=== PATIENT | female | born 1960 ===

== ENCOUNTER 2019-03-09 16:25 | Observation (INO) | payer BC ==
[~2019-03-09] VITALS: Ht 160 cm; Wt 118.0 kg
[2019-03-09] MEDS ORDERED: GABAPENTIN600 MG PO (16:47)
[2019-03-09] MEDS ORDERED: LOSARTAN POTASS50 MG PO (16:48)
[2019-03-09] MEDS ORDERED: METFORMIN HCL500 M2 PO (16:48)
[2019-03-09] MEDS ORDERED: Hydrochlorothia25 MG PO (16:48)
[2019-03-09 17:04] LABS: BASOPHILS ABSOLUTE AUTO 0.02 K/mm3 (0.00-0.23); BASOPHILS PERCENT AUTO 0 % (0-2); EOSINOPHILS ABSOLUTE AUTO 0.04 K/mm3 (0.00-0.68); EOSINOPHILS PERCENT AUTO 0 % (0-6); Hematocrit 40.5 % (33.0-51.0); IMMATURE GRAN ABSOLUTE AUTO 0.04 K/mm3 (0.00-0.10); IMMATURE GRAN PERCENT AUTO 0 % (0-1); LYMPHOCYTES ABSOLUTE AUTO 1.39 K/mm3 (0.84-5.20); LYMPHOCYTES PERCENT AUTO 14 % (21-46); MONOCYTES PERCENT AUTO 4 % (4-13); Mean Corpuscular HGB 28.4 pg (26.0-34.0); Mean Corpuscular HGB Conc 32.1 g/dL (31.5-36.5); Mean Corpuscular Volume 89 fL (80-100); Mean Platelet Volume 9.5 fL (9.1-12.4); NEUTROPHILS ABSOLUTE AUTO 7.85 K/mm3 (1.96-9.15); NEUTROPHILS PERCENT AUTO 81 % (41-73); Platelet Count 334 K/mm3 (150-400); RDW Coefficient Variation 12.7 % (11.7-14.2); RDW Standard Deviation 41.5 fL (35.1-46.3); Red Blood Cell Count 4.57 M/mm3 (3.80-5.20); White Blood Cell Count 9.74 K/mm3 (4.00-11.30)
[2019-03-09 17:17] LABS: Albumin, Blood 3.9 g/dL (3.4-5.0); Albumin/Globulin Ratio 1.1 (0.8-1.8); Bilirubin, Total 0.3 mg/dL (0.1-1.0); Bun/Creatinine Ratio 15.8 (12.0-20.0); Calcium, Blood 10.7 mg/dL (8.5-10.1); Creatinine, Blood 1.01 mg/dL (0.40-1.00); Globulin, Blood 3.7 g/dL (2.2-4.0); Potassium, Blood 3.6 mmol/L (3.5-5.5); Total Protein, Blood 7.6 g/dL (6.4-8.2)
[2019-03-09 18:02] LABS: Source, Urine Clean Catch
[2019-03-09 18:13] LABS: Appearance, Urine Hazy (Clear); Bilirubin, Urine Neg (Neg); Blood, Urine 4+ (Neg); Color, Urine Yellow (P-Yellow); Glucose Qualitative, Urine Neg (Neg); Ketones, Urine 1+ (Neg); Leukocyte Esterase, Urine 3+ (Neg); Nitrite, Urine Neg (Neg); Protein, Urine 2+ (Neg); Urobilinogen, Urine NORM (Normal)
[2019-03-09 18:25] LABS: Bacteria Many /hpf; Squamous Epithelial Cells Mod /hpf (Few)
[2019-03-09 18:27] LABS: Hyaline Casts 0-2 /lpf (0-2)
[2019-03-09 19:13] LABS: Source, Urine Catheter
[2019-03-09 19:17] LABS: Appearance, Urine Clear (Clear); Bilirubin, Urine Neg (Neg); Blood, Urine 3+ (Neg); Color, Urine Yellow (P-Yellow); Glucose Qualitative, Urine Neg (Neg); Ketones, Urine Neg (Neg); Leukocyte Esterase, Urine 2+ (Neg); Nitrite, Urine Neg (Neg); Protein, Urine Neg (Neg); Urobilinogen, Urine NORM (Normal)
[2019-03-09 19:25] LABS: Bacteria Mod /hpf
[2019-03-09 19:26] LABS: Squamous Epithelial Cells Few /hpf (Few)
[2019-03-09 20:53] LABS: International Normalized Ratio 0.97; Prothrombin Time Results 10.3 Sec (9.7-11.5)
[2019-03-09 23:07] LABS: Hematocrit 37.6 % (33.0-51.0); Hemoglobin 12.2 g/dL (11.5-16.0); Mean Corpuscular HGB 28.7 pg (26.0-34.0); Mean Corpuscular HGB Conc 32.4 g/dL (31.5-36.5); Mean Corpuscular Volume 89 fL (80-100); Mean Platelet Volume 9.4 fL (9.1-12.4); Platelet Count 315 K/mm3 (150-400); RDW Coefficient Variation 12.9 % (11.7-14.2); RDW Standard Deviation 41.6 fL (35.1-46.3); Red Blood Cell Count 4.25 M/mm3 (3.80-5.20); White Blood Cell Count 13.91 K/mm3 (4.00-11.30)
--- NOTE | 2019-03-09 23:31 | NUR ---
2215 REPORT RECEIVED FROM SHELBIE RUTH IN ER; PT ARRIVED TO FLOOR VIA CART WITH IV LFA SQ, ENTIRE CATHETER REMOVED INTACT AND PRESSURE DRESSING APPLIED. PT WAS NOTED TO HAVE AN IRREGULAR HEART BEAT; DR MOELLER WAS CALLED AND TELEMETRY WAS APPLIED WITH [facility]--SENIOR JAVA DATA ARCHITECT ADVISING OF HEART RATE 150. PT ALSO HAD A 400ML EMESIS (DARK BLACK FLUID). 2315 DR MOELLER CALLED AND ADVISED OF SVT RATE 210; STAT EKG AND MD TO COME BEDSIDE FOR EVALUATION. 2325 DR MOELLER AT SIDE WITH ORDERS TO MOVE PCU; THIS NURSE CALLED REPORT TO PCU=11, NIK RN; PT MOVED VIA BED TO PCU WITH ALL PERSONAL BELONGINGS; LABORER HEADING WILL NOTIFY FAMILY OF MOVE FROM MEDICAL FLOOR.
--- NOTE | 2019-03-10 01:00 | NUR ---
TRANSFER NOTE REPORT RECIEVED FROM SHELBIE BROWN. PATIENT TRANSFERED DOWN AT APPROX 2325. PATIENT DID NOT APPEAR TO BE IN ANY DISTRESS UPON ARRIVAL TO THE UNIT. PATIENT DENIED HAVING ANY CHEST PAIN OR DISCOMFORT. PATIENT STATED THAT SHE WAS WANTING TO, "GET SOME SLEEP." PATIENT SETTLED IN AND ORIENTED TO THE ROOM, UNIT, AND CALL LIGHT. DR MOELLER PRESENT IN ROOM WITH PATIENT UPON TRANSFER. EKG OBTAINED. IV CARDIZEM PUSH GIVEN PER ORDERS AND CARDIZEM GTT STARTED AT 10 ML/HR PER DR MILLIGAN ORDERS. ICE PACK GIVEN TO PATIENT FOR A MILD HEADACHE. PATIENT CURENTLY RESTING IN BED COMFORTABLY. IV FLUIDS, PROTONIX GTT, AND CARDIZEM GTT RUNNING PER ORDERS. WILL COTNINUE TO MONITOR.
[2019-03-10 03:13] LABS: Hematocrit 35.2 % (33.0-51.0); Hemoglobin 11.5 g/dL (11.5-16.0); Mean Corpuscular HGB 28.9 pg (26.0-34.0); Mean Corpuscular HGB Conc 32.7 g/dL (31.5-36.5); Mean Corpuscular Volume 88 fL (80-100); Mean Platelet Volume 9.5 fL (9.1-12.4); Platelet Count 292 K/mm3 (150-400); RDW Coefficient Variation 12.8 % (11.7-14.2); RDW Standard Deviation 41.4 fL (35.1-46.3); Red Blood Cell Count 3.98 M/mm3 (3.80-5.20); White Blood Cell Count 10.68 K/mm3 (4.00-11.30)
--- NOTE | 2019-03-10 03:18 | NUR ---
UPDATE DR LOUIS NOTIFIED THAT PATIENT'S HEART RATE CONTINUES TO BE IN THE 140'S. LABS ORDERED AND DRAWN NOW ALONG WITH AM LABS. DR LOUIS ORDERED FOR CARDIZEM GTT TO BE INCREASED FROM 15 MLS/HR TO 20 MLS/HR. PATIENT CONTINUES TO REMAIN ASYMPTOMATIC. PATIENT DENYING ANY CHEST PAIN OR DISCOMFOT. WILL CONTINUE TO MONITOR.
[2019-03-10 03:35] LABS: Magnesium, Blood 1.6 mg/dL (1.6-2.4)
[2019-03-10 03:36] LABS: Anion Gap 7 mmol/L (6-16); Blood Urea Nitrogen 14 mg/dL (8-24); Bun/Creatinine Ratio 18.4 (12.0-20.0); CO2, Blood 26 mmol/L (21-32); Calcium, Blood 9.1 mg/dL (8.5-10.1); Chloride, Blood 108 mmol/L (98-108); Creatinine, Blood 0.76 mg/dL (0.40-1.00); Glomerular Filtration Rate >60 (60-); Glucose, Blood 162 mg/dL (70-99); Potassium, Blood 3.9 mmol/L (3.5-5.5); Sodium, Blood 141 mmol/L (136-145)
[2019-03-10 03:37] LABS: BAND PERCENT MAN 1 % (0-8); BASOPHILS PERCENT MAN 0 % (0-2); EOSINOPHILS PERCENT MAN 0 % (0-6); LYMPHOCYTES ABSOLUTE MAN 1.49 K/mm3 (0.84-5.20); LYMPHOCYTES PERCENT MAN 14 % (21-46); MONOCYTES PERCENT MAN 1 % (4-13); NEUTROPHILS ABSOLUTE MAN 9.07 K/mm3 (1.96-9.15); SEG NEUTROPHILS PERCENT MAN 84 % (41-73); TOTAL CELLS COUNTED 100
--- NOTE | 2019-03-10 06:46 | NUR ---
SHIFT SUMMARY PATIENT CONTINUES TO BE VERY PLEASENT AND COOPERATIVE THROUGHOUT THE NIGHT. PATIENT REPROTS SHE WAS ABLE TO SLEEP FOR SEVERAL HOURS LAST NIGHT. PATIENT UP TO THE BSC X 1 BUT HER HEART RATE INCREASED TO THE 180'S-190'S BUT CAME BACK DOWN QUICKLY AFTERWARDS. PATIENT NOW USING THE BED PAIN UNTIL HER HEART RATE BECOMES MORE CONTROLLED. PATIENT'S HEART RATE NOW APPEARS TO BE RUNNING IN THE 120'S AT THIS TIME. IV FLUIDS AND PROTONIX GTT RUNNING PER ORDERS. CARDIZEM GTT RUNNING AT 20 ML/HR. PATIENT REPROTS SHE FEELS BETTER THIS MORNING AND NO LONGER HAS ANY EPIGASTRIC PAIN LIKE SHE CAME IN WITH. PATIENT AWAKE AND RESTING IN BED AT THIS TIME, PATIENT DENIES ANY NEEDS AT THIS TIME, WILL CONTINUE TO MONITOR PATIENT AND REPORT TO ONCOMING RN.
--- NOTE | 2019-03-10 07:44 | NUR ---
ASSISTED PT WITH BEDPAN.
--- NOTE | 2019-03-10 08:54 | NUR ---
PT APPEARS TO BE SLEEPING SUNDLY AT THIS TIME, NO APPARENT DISTRESS NOTED
[2019-03-10 09:20] LABS: Hematocrit 33.3 % (33.0-51.0); Hemoglobin 10.8 g/dL (11.5-16.0); Mean Corpuscular HGB 28.8 pg (26.0-34.0); Mean Corpuscular HGB Conc 32.4 g/dL (31.5-36.5); Mean Corpuscular Volume 89 fL (80-100); Mean Platelet Volume 9.6 fL (9.1-12.4); Platelet Count 285 K/mm3 (150-400); RDW Coefficient Variation 12.9 % (11.7-14.2); RDW Standard Deviation 41.8 fL (35.1-46.3); Red Blood Cell Count 3.75 M/mm3 (3.80-5.20); White Blood Cell Count 7.42 K/mm3 (4.00-11.30)
--- NOTE | 2019-03-10 12:00 | NUR ---
Echocardiogram completed.
--- NOTE | 2019-03-10 14:41 | NUR ---
PT HAS CONVERTED TO NSR AT THIS TIME, CALLED DR ARMSTRONG FOR UPDATE THERE WAS NO ANSWER SO MESSAGE LEFT. CARDIZEM IS STOPPED AT THIS TIME
--- NOTE | 2019-03-10 17:15 | NUR ---
REPORT TO TY MORFIN ON MEDICAL FLOOR WHO WILL ASSUME PT CARE
--- NOTE | 2019-03-10 18:41 | NUR ---
PT TO MEDICAL FLOOR
--- NOTE | 2019-03-10 19:30 | NUR ---
TING WAS AWAKE ASKING IF SHE CAN GET UP AND WAS HER FACE. SHE IS INDEPENDANT IN THE ROOM. GAVE HER SOME TOWELS AND BATHROOM SUPPLIES. SHE DENIES ANY PAIN OR DISCOMFORT. TELE IS ON. DENIES ANY OTHER NEEDS. CALL LIGHT WITH IN REACH.
[2019-03-11 04:56] LABS: Hematocrit 33.2 % (33.0-51.0); Hemoglobin 10.6 g/dL (11.5-16.0); Mean Corpuscular HGB Conc 31.9 g/dL (31.5-36.5); Mean Corpuscular Volume 91 fL (80-100); Mean Platelet Volume 9.6 fL (9.1-12.4); Platelet Count 280 K/mm3 (150-400); RDW Coefficient Variation 13.2 % (11.7-14.2); Red Blood Cell Count 3.66 M/mm3 (3.80-5.20); White Blood Cell Count 6.15 K/mm3 (4.00-11.30)
[2019-03-11 05:17] LABS: Albumin, Blood 3.1 g/dL (3.4-5.0); Anion Gap 6 mmol/L (6-16); Blood Urea Nitrogen 14 mg/dL (8-24); Bun/Creatinine Ratio 15.7 (12.0-20.0); CO2, Blood 27 mmol/L (21-32); Calcium, Blood 8.6 mg/dL (8.5-10.1); Chloride, Blood 109 mmol/L (98-108); Creatinine, Blood 0.89 mg/dL (0.40-1.00); Glomerular Filtration Rate >60 (60-); Glucose, Blood 115 mg/dL (70-99); Phosphorus, Blood 2.7 mg/dL (2.5-4.9); Potassium, Blood 3.6 mmol/L (3.5-5.5); Sodium, Blood 142 mmol/L (136-145)
--- NOTE | 2019-03-11 05:52 | NUR ---
SHIFT SUMMARY: TING HAS A GOOD NIGHT WITH NO PAIN OR DISCOMFORT. IV CONTINUED TO INFUSE WITH NO PROBLEMS. VS WNL, NO TACHYCARDIA NOTED THIS SHIFT. TELE SHOWED SINUS RHYTHEM ALL NIGHT. BLOOD SUGARS IN THE 130'S. NO ACUTE CHANGES OR CONCERNS TO NOTE. CALL LIGHT WITH IN REACH AND USED APPROPRIATLY.
[2019-03-11] MEDS ORDERED: DILT120 PO (12:10)
[2019-03-11] MEDS ORDERED: PANT40 PO (12:10)
--- NOTE | 2019-03-11 14:03 | NUR ---
PT DISCHARGED FROM THE UNIT. BOTH IV'S REMOVED, TELEMETRY REMOVED. DISCHARGE INSTRUCTION REVIEWED. PT WILL CALL [facility] TO SET UP A FOLLOW UP APPOINTMENT AND WILL ARRANGE WITH [facility] TO SET UP AN OUTPATIENT GI CONSULT. MEDICATIONS FAXED TO [facility], PT INSTRUCTED TO INVESTIGATOR NARCOTICS ON HER WAY HOME.
[2019-03-31] MEDS ORDERED: METFORMIN HCL1000 MG PO (08:17)
[2019-03-31] MEDS ORDERED: HYDCHL25 PO (08:17)
[2019-03-31] MEDS ORDERED: L-LYSINE500 MG PO (08:18)
[2019-03-31] MEDS ORDERED: MULTIPLE VITAM1 EACH PO (08:18)
[2019-03-31] MEDS ORDERED: ERGO50000 PO (08:18)
[2019-03-31] MEDS ORDERED: LEG CRAMP RELIEF PO (08:19)
[2019-03-31] MEDS ORDERED: HAIR, SKIN AND1 EAC3 PO (08:19)
== END 2019-03-11 13:51 | disposition home or self-care (01) ==
LOC: ER 16:25 → MEDS 21:40 → PCU 23:28 → MEDS 03-10 18:45 → ENPENDDIS 03-11 11:23 → MEDS 03-11 13:51
PROVIDERS: Family Medicine; Internal Medicine; Physician Assistant; ADMIT Internal Medicine
DX: R19.5 Other fecal abnormalities (principal); I48.0 Paroxysmal atrial fibrillation; I12.9 Hypertensive chronic kidney disease with stage 1 through stage 4 chronic kidney disease, or unspecified chronic kidney disease; E11.22 Type 2 diabetes mellitus with diabetic chronic kidney disease; N18.3 Chronic kidney disease, stage 3 (moderate); N20.0 Calculus of kidney; E11.40 Type 2 diabetes mellitus with diabetic neuropathy, unspecified; Z88.2 Allergy status to sulfonamides; Z79.84 Long term (current) use of oral hypoglycemic drugs; Z79.899 Other long term (current) drug therapy
CPT/HCPCS: 36415; 74018; 76770; 80048; 80053; 80069; 81001; 82272; 82947; 83036; 83735; 84443; 84484; 85007; 85025; 85027; 85610; 86850; 86900; 86901; 87086; 93005; 93010; 93306; 96361; 96365; 96366; 96367; 96375; 96376; 99285-25; C9113; G0378; J0360; J0696; J1170; J2405; J7030; J7120; P9612

== ENCOUNTER 2019-04-04 08:47 | Day surgery (SDC) | payer BC ==
[~2019-04-04] VITALS: Ht 162.6 cm; Wt 113.7 kg
[~2019-04-04 08:47] MED LIST: DILT120 PO; ERGO50000 PO; GABAPENTIN600 MG PO; HAIR, SKIN AND1 EAC3 PO; HYDCHL25 PO; Hydrochlorothia25 MG PO; L-LYSINE500 MG PO; LEG CRAMP RELIEF PO; LOSARTAN POTASS50 MG PO; METFORMIN HCL1000 MG PO; METFORMIN HCL500 M2 PO; MULTIPLE VITAM1 EACH PO; PANT40 PO
--- NOTE | 2019-04-04 10:15 | NUR ---
04/04/19 Annalee5 Freda Pham PATIENT NOTIFIED OF DELAY DUE TO ANESTHESIOLOGIST IN DIFFERENT CASE THAT RAN LONG. PATIENT COMFORTABLE, GIVEN WARM BLANKET, CALL LIGHT AT BEDSIDE. PATIENT VERBALIZES UNDERSTANDING
== END 2019-04-04 11:30 | disposition home or self-care (01) ==
LOC: ORSCSDS 08:47
PROVIDERS: Internal Medicine Gastroenterology
PROC: 0DB68ZX Excision of Stomach, Via Natural or Artificial Opening Endoscopic, Diagnostic (ICD-10-PCS; principal; 2019-04-04 10:00)
PROC: 0DBL8ZX Excision of Transverse Colon, Via Natural or Artificial Opening Endoscopic, Diagnostic (ICD-10-PCS; principal; 2019-04-04 10:00)
PROC: 0DBN8ZX Excision of Sigmoid Colon, Via Natural or Artificial Opening Endoscopic, Diagnostic (ICD-10-PCS; principal; 2019-04-04 10:00)
DX: K92.1 Melena (principal); D12.3 Benign neoplasm of transverse colon; D12.5 Benign neoplasm of sigmoid colon; N28.9 Disorder of kidney and ureter, unspecified; E11.9 Type 2 diabetes mellitus without complications; I48.91 Unspecified atrial fibrillation; I10 Essential (primary) hypertension; I49.9 Cardiac arrhythmia, unspecified; K21.0 Gastro-esophageal reflux disease with esophagitis; K44.9 Diaphragmatic hernia without obstruction or gangrene; K64.8 Other hemorrhoids; K57.30 Diverticulosis of large intestine without perforation or abscess without bleeding; E66.9 Obesity, unspecified; Z68.41 Body mass index [BMI] 40.0-44.9, adult; Z79.84 Long term (current) use of oral hypoglycemic drugs; Z79.899 Other long term (current) drug therapy
CPT/HCPCS: 82947; 88305; 88342; J2704; J7120

== ENCOUNTER → 2022-01-20 | Outpatient (CLI) | payer BC | END | disposition home or self-care (01) | LOC: LAB 13:16 → LAB SHORT 13:16 | DX: R31.9 Hematuria, unspecified (principal) | CPT/HCPCS: 87086 ==

== ENCOUNTER → 2022-03-06 | Outpatient (CLI) | payer BC | END | disposition home or self-care (01) | LOC: LAB 10:18 → LAB SHORT 10:18 | DX: R30.0 Dysuria (principal) | CPT/HCPCS: 87077; 87086; 87186 ==

== ENCOUNTER 2025-03-03 20:48 | Emergency (ER) | payer OTHER ==
[~2025-03-03] VITALS: Ht 157.5 cm; Wt 104.8 kg
[2025-03-03] MEDS ORDERED: NS 1,000 ML IV SCH (21:00)
[2025-03-03 21:12] LABS: BASOPHILS ABSOLUTE AUTO 0.03 K/mm3 (0.00-0.23); BASOPHILS PERCENT AUTO 0 % (0-2); EOSINOPHILS ABSOLUTE AUTO 0.01 K/mm3 (0.00-0.68); EOSINOPHILS PERCENT AUTO 0 % (0-6); Hematocrit 33.7 % (33.0-51.0); Hemoglobin 10.9 g/dL (11.5-16.0); IMMATURE GRAN ABSOLUTE AUTO 0.07 K/mm3 (0.00-0.10); IMMATURE GRAN PERCENT AUTO 1 % (0-1); LYMPHOCYTES ABSOLUTE AUTO 1.38 K/mm3 (0.84-5.20); LYMPHOCYTES PERCENT AUTO 12 % (21-46); MONOCYTES ABSOLUTE AUTO 0.45 K/mm3 (0.16-1.47); MONOCYTES PERCENT AUTO 4 % (4-13); Mean Corpuscular HGB Conc 32.3 g/dL (31.5-36.5); Mean Corpuscular Volume 84 fL (80-100); NEUTROPHILS ABSOLUTE AUTO 9.50 K/mm3 (1.96-9.15); NEUTROPHILS PERCENT AUTO 83 % (41-73); NRBC ABSOLUTE 0.00 K/mm3 (0.00-0.02); NRBC Auto 0.0 /100 WBC (0.0-0.2); Platelet Count 418 K/mm3 (150-400); RDW Coefficient Variation 14.0 % (11.7-14.2); RDW Standard Deviation 43.3 fL (35.1-46.3)
[2025-03-03 21:40] LABS: Alanine Aminotransfer (ALT/SGP 19.0 U/L (12-78); Albumin, Blood 3.7 g/dL (3.4-5.0); Albumin/Globulin Ratio 0.8 (0.8-1.8); Anion Gap 11.0 mmol/L (3-11); Aspartate Aminotrans (AST/SGOT 16.0 U/L (12-37); Bilirubin, Total 0.5 mg/dL (0.1-1.0); Blood Urea Nitrogen 25.0 mg/dL (8-24); CO2, Blood 25.0 mmol/L (21-32); Calcium, Blood 9.9 mg/dL (8.5-10.1); Chloride, Blood 104.0 mmol/L (98-108); Creatinine, Blood 1.03 mg/dL (0.40-1.00); Globulin, Blood 4.6 g/dL (2.2-4.0); Glucose, Blood 133.0 mg/dL (70-99); Potassium, Blood 3.5 mmol/L (3.5-5.5); Sodium, Blood 136.0 mmol/L (136-145); Total Protein, Blood 8.3 g/dL (6.4-8.2)
[2025-03-03 23:45] VITALS: BP 175/84
== END 2025-03-03 23:57 | disposition home or self-care (01) ==
LOC: ER 20:48
PROVIDERS: Emergency Medicine
DX: H34.12 Central retinal artery occlusion, left eye (principal); E11.40 Type 2 diabetes mellitus with diabetic neuropathy, unspecified; Z88.2 Allergy status to sulfonamides; Z79.84 Long term (current) use of oral hypoglycemic drugs; Z79.899 Other long term (current) drug therapy
CPT/HCPCS: 70450; 70496; 70498; 80053; 85025; 93005; 93010; 96360-59; 96361-59; 99284-25; J7030; Q9967